=== PATIENT | female | born 2000 | race Caucasian/White ===

== ENCOUNTER → 2020-05-16 | Outpatient (CLI) | payer OTHER | LOC: ZCOL.LAB 15:59 | DX: M79.10 Myalgia, unspecified site (principal); R53.83 Other fatigue; Z20.828 Contact with and (suspected) exposure to other viral communicable diseases ==

== ENCOUNTER → 2020-05-20 | Outpatient (CLI) | payer OTHER | LOC: ZCOL.LAB 15:40 | DX: Z20.828 Contact with and (suspected) exposure to other viral communicable diseases (principal) ==